=== PATIENT | male | born 1955 | race Caucasian/White ===

== ENCOUNTER 2017-02-22 06:34 | Inpatient (IN) ==
[2017-02-22] MEDS ORDERED: Lidocaine -MPF 1% 2 ML VIAL ID ONE (06:51)
[2017-02-22] MEDS ORDERED: Levofloxacin 500 MG/100 ML 500 MG/100 ML BAG IVPB ONE (06:51)
[2017-02-22] MEDS ORDERED: *HR* FentaNYL (PF) 100 MCG/2 ML VIAL ONE (07:00)
[2017-02-22] MEDS ORDERED: *HR* Midazolam HCl 2 MG/2 ML VIAL ONE (07:01)
[2017-02-22] MEDS ORDERED: *HR* Propofol 200 MG/20 ML VIAL IVP ONE (07:01)
[2017-02-22] MEDS ORDERED: Lidocaine -MPF 2% 2 ML VIAL ONE (07:01)
[2017-02-22] MEDS ORDERED: *HR* Succinylcholine 200 MG/10 ML VIAL IVP ONE (07:01)
[2017-02-22] MEDS: Ringers Solution, Lactated 1,000 ML IVC SCH ×2 (07:22→09:30)
--- NOTE | 2017-02-22 07:24 | History & Physical Report ---
Date of Encounter: 02/22/17 Time of Encounter: 07:23 24 Hour HP Update - Instructions Instructions: If the History and Physical is less than 30 days old and was completed prior to A.M. admission and or procedure and has NOT been updated on calendar day of procedure please complete this update prior to performing procedure. - Update Patient reports changes in Medical Condition: No Changes in examination, assessment, or condition: No Changes in Medication: No Preop tests/diagnostics Reviewed: Yes Surgery Remains Indicated: Yes Consent for Planned Operative Procedure(s) Verified: Yes - Pre-Operative Checklist Preoperative Checklist Indicated: Yes Prophylactic Antibiotic Ordered: Yes Home Medications Include Beta Isaac: No Is VTE Prophylaxis Indicated?: Yes
--- NOTE | 2017-02-22 07:40 | Anesthesia Evaluation PreOp ---
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: Denies Any Significant HX Other Medical History: Diabetes Type II (oral medications only; A1c 9.2) Anesthesia History: No Prior Anesthetic Complications Alcohol Use: none Drug use: none Medications and Allergies Aspirin [Lo-Dose Aspirin EC] 81 mg PO DAILY 03/18/16 [History] Lisinopril-HCTZ 20-12.5 [Prinzide 20-12.5] 2 tab PO DAILY 03/18/16 [History] Metformin HCl [Glucophage] 1,000 mg PO DAILY 03/18/16 [History] Simvastatin [Zocor] 20 mg PO DAILY 03/18/16 [History] Allergies No Known Allergies Allergy (Verified 02/22/17 07:35) - Meds/Allergy Pre-op Review Medications Reviewed: Yes Allergies Reviewed: Yes Beta Blockers on Current Med List: No Anesthesia Results - Labs Laboratory Tests 02/19/17 02/19/17 02/19/17 16:05 16:05 16:05 Hgb 14.0 Potassium 3.8 Est Mean Plasma Glucose 217 Hemoglobin A1c 9.2 H - Imaging EKG: report reviewed, image reviewed (SR) Anesthesia Exam Last Vital Signs Temp 98.2 F 02/22/17 07:02 Pulse 68 02/22/17 07:02 Resp 18 02/22/17 07:02 BP 160/94 02/22/17 07:02 Pulse Ox 96 02/22/17 07:02 Weight: 95 kg NPO (# of Hours): >> 8 hrs - HEENT Pupil (Motor): Pupils equal, EOMI Mallampati: I Oral Opening: Greater than 3 - AUT[employer]BI[employer] MECH[employer]IC SUPERVISOR LOC: Oriented [employer]IC SUPERVISOR Motor: Normal RUE, Normal LUE, Normal RLE, Normal LLE, Normal Face - Cardiac Rhythm: Regular Murmur: None - Pulmonary Breath Sounds: bilateral Clear Respiratory Effort: Symmetrical Anesthesia Assess/Plan ASA Score: 3 Modified Chancellor Scale for Level of Consciousness: Cooperative, oriented, and tranquil Anesthetic Plan: General Monitoring Plan: Standard Monitors Recovery Plan: PACU
[2017-02-22] MEDS ORDERED: *HR* Morphine 2 MG/ML SYRINGE IVP PRN (08:14)
[2017-02-22] MEDS ORDERED: *HR* Labetalol 20 MG/4 ML SYRINGE IVP PRN (08:14)
[2017-02-22] MEDS ORDERED: *HR* Promethazine 25 MG/ML VIAL IVP PRN (08:14)
--- NOTE | 2017-02-22 09:06 | Operative Note ---
Date of procedure: 02/22/17 Pre-op diagnosis: Benign prostatic hyperplasia, urinary retention. Post-op diagnosis: same Procedure: Transurethral resection of prostate. Implants: 24 Irish 3-way catheter. Complications: None. Anesthesia: KATIE Surgeon: Momo Steele Estimated blood loss (cc): 400 Specimen: Prostate chips Condition: stable Disposition: PACU Procedure in Detail: INDICATIONS: Isai is a 61 year old gentleman, who has BPH and incomplete bladder emptying. He is currently in retention and has failed voiding trials. He wished to undergo a transurethral resection of prostate. He is aware of the risks of procedure including, but not limited to, bleeding, infection, injury to other structures, need for further procedures, incomplete bladder emptying, bladder neck contracture, urethral stricture, urinary incontinence, retrograde ejaculation, erectile dysfunction, and the risk of anesthesia. He is willing to proceed. DESCRIPTION OF PROCEDURE: After informed consent was obtained, the patient was brought back to the operating room and placed in supine position. Time-out was performed. General anesthesia was then administered and a laryngeal mask airway was placed. He was then placed in lithotomy position. His genitalia were prepped and draped in usual sterile fashion. The resector sheath was then introduced using the visual obturator to the urethra. The prostate showed lateral lobe hyperplasia. There was an intravesical median lobe. The ureteral orifices were in the normal orthotopic position. There is no bladder tumor. There were 2+ trabeculations. I then inserted the Banks element with the resecting loop. The median lobe was taken down using electrocautery down to the level of the verumontanum. I then turned my attention to the left lateral lobe and this was resected away. Attention was then turned to the right lobe and this was resected away. I did perform a small amount of resection anteriorly as well. The prostate was quite vascular and bloody. Once adequate resection was achieved, I then achieved hemostasis with electrocautery. All the TURP chips were irrigated out. I then confirmed hemostasis again. Once hemostasis was adequate, I removed the scope. The verumontanum and ureteral orifices were free of injury and left intact. A 24-Irish three-way catheter was then placed, 60 mL was instilled in the balloon. The catheter was left on traction. Continuous bladder irrigation was started. The patient was then awakened from general anesthesia, brought to recovery room in good condition. All sponge, needle, and instrument counts were correct.
--- NOTE | 2017-02-22 09:30 | Anesthesia Evaluation Post Op ---
Date of Encounter: 02/22/17 Time of Encounter: 09:30 - Vital Signs Vital Signs: Last Vital Signs Temp 97.4 F L 02/22/17 09:00 Pulse 66 02/22/17 09:20 Resp 14 02/22/17 09:20 BP 160/92 02/22/17 09:20 Pulse Ox 98 02/22/17 09:20 - Lungs Lungs: Clear Ascult./Percussion - Airway Airway: Non-obstructed - Cardiovascular Regular Rate - Mental Status Mental Status: Alert & Oriented, Answers Appropriately - Pain Pain Scale: 2 - Hydration Hydration: Ice chips, Haddad catheter - Discharge PostOp Status: Transfer Patient to floor
[2017-02-22] MEDS ORDERED: Naloxone 0.4 MG/ML INJ IVP PRN (10:27)
[2017-02-22] MEDS ORDERED: *HR* HYDROcodone/Acet 5/325 mg TABLET PO PRN (10:27)
[2017-02-22] MEDS ORDERED: *HR* HYDROmorphone (PF) 1 MG/ML SYRINGE IVP PRN (10:27)
[2017-02-22] MEDS ORDERED: Dextrose Gel 15 GM PO PRN ×2 (10:27)
[2017-02-22] MEDS ORDERED: Ondansetron 4 MG/2 ML VIAL IVP PRN (10:27)
[2017-02-22] MEDS ORDERED: *HR* Dextrose 50 % in Water (Syg) 50 ML SYRINGE IVP PRN (10:27)
[2017-02-22] MEDS ORDERED: D5% in Water 1,000 ML IVC PRN (10:27)
[2017-02-22] MEDS ORDERED: Acetaminophen 325 MG TABLET PO PRN (10:27)
[2017-02-22] MEDS: 0.9 % Sodium Chloride 1,000 ML IVC SCH ×2 (11:47→19:58)
[2017-02-22] MEDS: Insulin LISPRO 300 UNITS/3 ML VIAL SQ SCH ×2 (12:18→16:56)
--- NOTE | 2017-02-22 17:20 | Event Note ---
Date of Encounter: 02/22/17 Time of Encounter: 17:19 Rounded on patient after surgery. Urine has been bloody on fast cbi. I irrigated some clot out. Resumed fast CBI. Will need to closely monitor and consider take back to OR if catheter clots off.
[2017-02-22] MEDS ORDERED: *HR* Belladonna Alkaloids/Opium 30 MG RECTAL SUPPOSITORY RC PRN (17:24)
[2017-02-23] MEDS: 0.9 % Sodium Chloride 1,000 ML IVC SCH ×3 (03:28→19:50)
[2017-02-23 06:18] LABS: Basophils % 0.1 %; Eosinophils % 0.5 %; Hematocrit 26.6 % (37.5-50.1); Immature Granulocytes % 0.4 % (0-4); Lymphocytes # 1.4 K/mcL (0.6-4.6); Lymphocytes % 17.4 %; Mean Corpuscular HGB Conc 33.5 g/dL (31.6-35.5); Mean Corpuscular Hemoglobin 29.1 pg (28.0-33.3); Mean Corpuscular Volume 86.9 fL (83.0-100.0); Mean Platelet Volume 10.5 fL (9.4-12.4); Monocytes # 0.6 K/mcL (0.0-1.3); Monocytes % 7.3 %; Platelet Count 206 K/mcL (140-400); Red Blood Count 3.06 M/mcL (4.19-5.50); Red Cell Distribution Width 13.3 % (11.5-14.5); Segmented Neutrophils % 74.3 %
[2017-02-23 06:19] LABS: Hemoglobin 8.9 g/dL (12.9-16.9)
[2017-02-23 06:32] LABS: BUN/Creatinine Ratio 13 (6-26); Blood Urea Nitrogen 12 mg/dL (8-26); Calcium 7.8 mg/dL (8.6-10.8); Carbon Dioxide 24 mEq/L (19-29); Chloride 108 mEq/L (98-109); Glucose 197 mg/dL (70-99); Osmolality,Calculated 291 (280-300); Sodium 138 mEq/L (136-145); eGFR For African Americans > 60 (> 60); eGFR For Non-African Americans > 60 (> 60)
--- NOTE | 2017-02-23 07:36 | Urology Progress Note ---
Date of Encounter: 02/23/17 Time of Encounter: 07:33 - Assessment and Plan (1) BPH (benign prostatic hypertrophy) with urinary obstruction Current Visit: Yes Status: Acute Assessment and plan: Status post TURP, postoperative day #1. 1. We'll continue bladder irrigation today. 2. I will check a hemoglobin and hematocrit later today. 3. As his urine is becoming more clear, I do not think he'll need to return to the operating room. We will closely follow. 4. He will continue as an observation patient. (2) Postoperative hemorrhage Current Visit: Yes Status: Acute Assessment and plan: Repeat H&H later today. Consider transfusion if HCT drops lower. Qualifiers: Qualified Code(s): N99.820 - Postprocedural hemorrhage of a genitourinary system organ or structure following a genitourinary system procedure Progress Note Narrative: 61-year-old man status post TURP yesterday. His urine became bloody after surgery. This required a large amount of continuous bladder irrigation. His hematocrit dropped to 26.9 after surgery. His urine is still bloody, but the rate of CBI to maintain its color is slower today. Pain is adequately controlled. Objective Initial Vital Signs Temp Pulse Resp BP Pulse Ox 98.2 F 68 18 160/94 96 02/22/17 07:00 02/22/17 07:00 02/22/17 07:00 02/22/17 07:00 02/22/17 07:00 - General physical appearance Present: well developed, well nourished, no distress - Respiratory Present: normal respiratory effort - Abdomen Present: soft - Genitourinary Urine Appearance: Present: Hematuria ([address] with myers colored urine. CBI had run out. With CBI on full rate the urine clears. I turned the rate down.) - Labs 02/23/17 05:49 02/23/17 05:49 Diabetes panel 02/23/17 Range/Units 05:49 Sodium 138 (136-145) mEq/L Potassium 4.0 (3.5-4.5) mEq/L Chloride 108 (98-109) mEq/L Carbon Dioxide 24 (19-29) mEq/L BUN 12 (8-26) mg/dL Creatinine 0.91 (0.72-1.25) mg/dL Glucose 197 H (70-99) mg/dL Calcium 7.8 L (8.6-10.8) mg/dL Calcium panel 02/23/17 Range/Units 05:49 Calcium 7.8 L (8.6-10.8) mg/dL Pituitary panel 02/23/17 Range/Units 05:49 Sodium 138 (136-145) mEq/L Potassium 4.0 (3.5-4.5) mEq/L Chloride 108 (98-109) mEq/L Carbon Dioxide 24 (19-29) mEq/L BUN 12 (8-26) mg/dL Creatinine 0.91 (0.72-1.25) mg/dL Glucose 197 H (70-99) mg/dL Calcium 7.8 L (8.6-10.8) mg/dL Adrenal panel 02/23/17 Range/Units 05:49 Sodium 138 (136-145) mEq/L Potassium 4.0 (3.5-4.5) mEq/L Chloride 108 (98-109) mEq/L Carbon Dioxide 24 (19-29) mEq/L BUN 12 (8-26) mg/dL Creatinine 0.91 (0.72-1.25) mg/dL Glucose 197 H (70-99) mg/dL Calcium 7.8 L (8.6-10.8) mg/dL - VTE Documentation of Mechanical Device: Intermittent pneumatic compression device Consult Discharge Plan - Plan Referrals: Ger Chavez MD [Primary Care Provider] - Momo Steele MD [Partnered Physician] -
[2017-02-23] MEDS: Lisinopril-HCTZ 20-12.5mg TABLET PO SCH (07:47)
[2017-02-23] MEDS: *HR* Metformin 500 MG TABLET PO SCH (07:47)
[2017-02-23] MEDS: levoFLOXacin 500 MG TABLET PO SCH (07:48)
[2017-02-23] MEDS: Insulin LISPRO 300 UNITS/3 ML VIAL SQ SCH ×3 (07:50→17:32)
[2017-02-23 12:40] LABS: Hematocrit 29.3 % (37.5-50.1); Hemoglobin 9.9 g/dL (12.9-16.9)
[2017-02-24 03:37] LABS: Hematocrit 23.4 % (37.5-50.1); Mean Corpuscular HGB Conc 33.8 g/dL (31.6-35.5); Mean Corpuscular Hemoglobin 29.4 pg (28.0-33.3); Mean Platelet Volume 10.7 fL (9.4-12.4); Platelet Count 185 K/mcL (140-400); Red Blood Count 2.69 M/mcL (4.19-5.50); Red Cell Distribution Width 13.3 % (11.5-14.5)
[2017-02-24 03:41] LABS: Hemoglobin 7.9 g/dL (12.9-16.9)
[2017-02-24 03:42] LABS: BUN/Creatinine Ratio 12 (6-26); Blood Urea Nitrogen 14 mg/dL (8-26); Calcium 8.1 mg/dL (8.6-10.8); Carbon Dioxide 25 mEq/L (19-29); Chloride 108 mEq/L (98-109); Glucose 250 mg/dL (70-99); Osmolality,Calculated 297 (280-300); Sodium 139 mEq/L (136-145); eGFR For African Americans > 60 (> 60); eGFR For Non-African Americans > 60 (> 60)
[2017-02-24] MEDS: 0.9 % Sodium Chloride 1,000 ML IVC SCH (04:39)
[2017-02-24] MEDS: Insulin LISPRO 300 UNITS/3 ML VIAL SQ SCH ×3 (08:31→16:53)
[2017-02-24] MEDS: levoFLOXacin 500 MG TABLET PO SCH (08:32)
[2017-02-24] MEDS: Lisinopril-HCTZ 20-12.5mg TABLET PO SCH (08:32)
[2017-02-24] MEDS: *HR* Metformin 500 MG TABLET PO SCH (08:32)
--- NOTE | 2017-02-24 08:35 | Urology Progress Note ---
Date of Encounter: 02/24/17 Time of Encounter: 08:33 - Assessment and Plan (1) BPH (benign prostatic hypertrophy) with urinary obstruction Current Visit: Yes Status: Acute Assessment and plan: s/p TURP. POD #2. He had post operative hemorrhage. 1. Repeat H& this afternoon. Transfuse for hemoglobin less than 7.5. 2. CBI on slower rate now. 3. Will hold off on return to OR as urine color is significantly improved after blood clot irrigated out. (2) Postoperative hemorrhage Current Visit: Yes Status: Acute Qualifiers: Qualified Code(s): N99.820 - Postprocedural hemorrhage of a genitourinary system organ or structure following a genitourinary system procedure Progress Note Narrative: He had some bleeding yesterday and noted some urine coming around the catheter. H&H dropped to 8.9->9.9->7.9 today. HR and BP are stable. He denies any lightheadedness or dizziness. I irrigated a large amount of blood clot from the bladder. Irrigation became much more clear afterwards. Objective Initial Vital Signs Temp Pulse Resp BP Pulse Ox 98.2 F 68 18 160/94 96 02/22/17 07:00 02/22/17 07:00 02/22/17 07:00 02/22/17 07:00 02/22/17 07:00 - General physical appearance Present: well developed, well nourished, no distress - Respiratory Present: normal respiratory effort - Abdomen Present: soft - Genitourinary Present: normal penis with no external lesions Urine Appearance: Present: Hematuria (Large amount of clot irrigated out. Irrigation cleared. 3 L of sterile water irrigated through catheter.) - Labs 02/24/17 03:02 02/24/17 03:02 Diabetes panel 02/24/17 Range/Units 03:02 Sodium 139 (136-145) mEq/L Potassium 4.0 (3.5-4.5) mEq/L Chloride 108 (98-109) mEq/L Carbon Dioxide 25 (19-29) mEq/L BUN 14 (8-26) mg/dL Creatinine 1.21 (0.72-1.25) mg/dL Glucose 250 H (70-99) mg/dL Calcium 8.1 L (8.6-10.8) mg/dL Calcium panel 02/24/17 Range/Units 03:02 Calcium 8.1 L (8.6-10.8) mg/dL Pituitary panel 02/24/17 Range/Units 03:02 Sodium 139 (136-145) mEq/L Potassium 4.0 (3.5-4.5) mEq/L Chloride 108 (98-109) mEq/L Carbon Dioxide 25 (19-29) mEq/L BUN 14 (8-26) mg/dL Creatinine 1.21 (0.72-1.25) mg/dL Glucose 250 H (70-99) mg/dL Calcium 8.1 L (8.6-10.8) mg/dL Adrenal panel 02/24/17 Range/Units 03:02 Sodium 139 (136-145) mEq/L Potassium 4.0 (3.5-4.5) mEq/L Chloride 108 (98-109) mEq/L Carbon Dioxide 25 (19-29) mEq/L BUN 14 (8-26) mg/dL Creatinine 1.21 (0.72-1.25) mg/dL Glucose 250 H (70-99) mg/dL Calcium 8.1 L (8.6-10.8) mg/dL - VTE Documentation of Mechanical Device: Graduated compression elastic hosiery Consult Discharge Plan - Plan Referrals: Ger Chavez MD [Primary Care Provider] - Momo Steele MD [Partnered Physician] -
[2017-02-24 12:55] LABS: Hematocrit 25.5 % (37.5-50.1); Hemoglobin 8.4 g/dL (12.9-16.9)
--- NOTE | 2017-02-25 06:43 | Discharge Summary ---
Date of Encounter: 02/25/17 Time of Encounter: 06:41 - Discharge Diagnosis (1) BPH (benign prostatic hypertrophy) with urinary obstruction Priority: Primary Status: Acute (2) Postoperative hemorrhage Priority: Secondary Status: Acute Qualifiers: Qualified Code(s): N99.820 - Postprocedural hemorrhage of a genitourinary system organ or structure following a genitourinary system procedure - Discharge Medications Prescriptions: HYDROcodone/Acet 5/325 mg [[place] 5-325 mg] 2 tab PO Q4HR PRN #25 tablet PRN Reason: Moderate pain 4-6 Docusate [Colace] 100 mg PO BID #60 capsule Home Medications: Lisinopril-HCTZ 20-12.5 [Prinzide 20-12.5] 2 tab PO DAILY 03/18/16 [History] Metformin HCl [Glucophage] 1,000 mg PO DAILY 03/18/16 [History] Simvastatin [Zocor] 20 mg PO DAILY 03/18/16 [History] Docusate [Colace] 100 mg PO BID #60 capsule 02/25/17 [Rx] HYDROcodone/Acet 5/325 mg [[place] 5-325 mg] 2 tab PO Q4HR PRN #25 tablet [Rx] Allergies/Adverse Reactions: Allergies No Known Allergies Allergy (Verified 02/22/17 07:35) Labs on day of discharge: Labs from last 24 hours 02/24/17 02/24/17 02/24/17 20:26 16:35 12:31 Hgb 8.4 L Hct 25.5 L POC Glucose 207 H 160 H 02/24/17 02/24/17 10:59 07:40 Hgb Hct POC Glucose 193 H 219 H Date of admission: 02/23/17 07:38 Primary care physician: Ger Chavez MD Discharging clinician: Mmoo Steele Anticipated date of discharge: 02/25/17 - Patient Status Disposition: Home, Self-Care Condition: Good Functional capacity at discharge: independent ambulation Overall status at discharge: patient is progressing back to baseline - Discharge Instructions Follow Up With: Momo Steele MD [Partnered Physician] - ( for a voiding trial.) Additional Instructions: Please provide catheter care instructions - leg bag, night bag, leg strap and how to change the bags appropriately. Please provide sterile water, a graduate, and a catheter tip syringe. Please provide irrigation instructions. He should irrigate catheter as needed for any blood clot. He is okay to drive for work for a day trip only. No heavy lifting greater than 20 pounds 2 weeks. He should avoid constipation. He should return on , February 28, 2017 for a voiding trial. - Diet and Activity Activity: increase activity as tolerated Diet: advance to your usual diet - Hospital Course Hospital course: Mr. Orozco is a 61 year old male who underwent TURP on February 22, 2017. Postoperatively he had hematuria. This required both continuous bladder irrigation and hand irrigation in order to evacuate the blood clot. He remained in the hospital until postoperative day #3. At that point his urine was a light pink color off irrigation. He was discharged home with a catheter. - Time Spent with Patient Total time spent providing and/or coordinating discharge services: Less than 30 minutes Exam Initial Vital Signs Temp Pulse Resp BP Pulse Ox 98.2 F 68 18 160/94 96 02/22/17 07:00 02/22/17 07:00 02/22/17 07:00 02/22/17 07:00 02/22/17 07:00 - General physical appearance Present: well developed, well nourished, no distress - Eyes Absent: icteric - ENT Present: normal nares - Neck Present: trachea midline - Respiratory Present: normal respiratory effort - Cardiovascular Cardiovascular exam IM: RRR - Abdomen Abdomen: Present: soft - VTE Documentation of Mechanical Device: Intermittent pneumatic compression device
[2017-02-25 07:12] VITALS: BP 128/61
[2017-02-25] MEDS: Insulin LISPRO 300 UNITS/3 ML VIAL SQ SCH (08:29)
[2017-02-25] MEDS: Lisinopril-HCTZ 20-12.5mg TABLET PO SCH (08:30)
[2017-02-25] MEDS: *HR* Metformin 500 MG TABLET PO SCH (08:30)
[2017-02-25] MEDS: levoFLOXacin 500 MG TABLET PO SCH (08:31)
== END 2017-02-25 09:21 | disposition home or self-care (01) | DRG 713 ==
LOC: 3ANU 06:34 → SAMDAY 06:34 → 3ANU 09:50
PROVIDERS: ADMIT Urology; ATTEND Urology
PROC: UROTURP (2017-02-22 07:45)